=== PATIENT | male | born 1955 | race Caucasian/White ===

== ENCOUNTER → 2019-05-06 | Outpatient (CLI) | payer BC ==
--- NOTE | 2019-05-06 13:50 | PCVCIMAG ---
APPROVED REPORT Study performed: 05/06/2019 12:56:23 EXAM: Comprehensive 2D, Doppler, and color-flow Echocardiogram Patient Location: Echo lab Room #: 3Status: routine BSA: 2.33 HR: 80 bpmBP: 122/66 mmHg Rhythm: NSR Other Information Study Quality: Good Risk Factors: Cardiac Risk Factors: HTN, Hyperlipidemia, DM Indications Dyspnea Edema- weight gain 20 lb/ 1 mo, SOB 2D Dimensions IVSd: 7.77 (7-11mm)LVOT Diam: 21.96 (18-24mm) LVDd: 52.08 mm PWd: 7.81 (7-11mm)Ascending Ao: 32.95 (22-36mm) LVDs: 33.34 (25-40mm) Left Atrium: 32.60 (27-40mm) Aortic Root: 27.06 mm LV Single Plane 4CH: 56.42 % LV Single Plane 2CH: 63.45 % Biplane EF: 59.8 % Aortic Valve AoV Peak Nilton.: 1.07 m/s AO Peak Gr.: 4.61 mmHgLVOT Max P.00 mmHg LVOT Max V: 0.87 m/s [place] Vmax: 3.05 cm2 Mitral Valve E/A Ratio: 1.1 MV Decel. Time: 226.22 ms MV E Max Nilton.: 0.93 m/s MV A Nilton.: 0.83 m/s IVRT: 87.66 ms TDI E/Lateral E': 10.33E/Medial E': 11.63 Medial E' Nilton.: 0.08 m/s Lateral E' Nilton.: 0.09 m/s Pulmonary Valve PV Peak Nilton.: 0.68 m/sPV Peak Gr.: 1.87 mmHg Pulmonary Vein P Vein S: 0.86 m/sP Vein A: 0.39 m/s P Vein D: 0.52 m/sP Vein A Dur.: 106.1 msec P Vein S/D Ratio: 1.65 Tricuspid Valve TR Peak Nilton.: 1.24 m/s TR Peak Gr.: 6.14 mmHg TV Vmax: 0.63 m/sPA Pressure: 13.00 mmHg Left Ventricle The left ventricle is normal size. There is normal LV segmental wall motion. There is normal left ventricular wall thickness. Left ventricular systolic function is normal. The left ventricular ejection fraction is within the normal range. LVEF is 60%. The left ventricular diastolic function is normal. Right Ventricle The right ventricle is normal size. Right ventricular septal motion is paradoxical. Near collapse is seen. Atria The left atrium size is normal. Right atrial bowing and partial collapse is seen. The right atrium size is normal. Aortic Valve Aortic valve is trileaflet. The aortic valve is normal in structure. No aortic regurgitation is present. There is no aortic valvular stenosis. Mitral Valve The mitral valve is normal in structure. There is no mitral valve regurgitation noted. No evidence of mitral valve stenosis. Tricuspid Valve The tricuspid valve is normal in structure. Trace tricuspid regurgitation. Pulmonic Valve The pulmonary valve is normal in structure. There is no pulmonic valvular regurgitation. Great Vessels The aortic root is normal in size. IVC is normal in size and collapses >50% with inspiration. Pericardium Moderate circumferential pericardial effusion. mod-Large pleural effusion is seen.partial rt sided collapse <Conclusion> The left ventricle is normal size. LVEF is 60%. The left ventricular diastolic function is normal. The right ventricle is normal size. Right ventricular septal motion is paradoxical. Near collapse is seen. Right atrial bowing and partial collapse is seen. The right atrium size is normal. Aortic valve is trileaflet. The aortic valve is normal in structure. There is no mitral valve regurgitation noted. Trace tricuspid regurgitation. The aortic root is normal in size. Moderate circumferential pericardial effusion. mod-Large pleural effusion is seen.partial rt sided collapse
== END | disposition home or self-care (01) ==
LOC: PCVCIMAG 10:59
PROVIDERS: ATTEND Internal Medicine Cardiovascular Disease
DX: I31.3 Pericardial effusion (noninflammatory) (principal); J90 Pleural effusion, not elsewhere classified; R06.00 Dyspnea, unspecified; R60.0 Localized edema; R63.5 Abnormal weight gain
CPT/HCPCS: 93306

== ENCOUNTER → 2019-05-13 | Outpatient (CLI) | payer BC ==
--- NOTE | 2019-05-13 17:30 | PCVCIMAG ---
APPROVED REPORT Study performed: 05/13/2019 09:25:04 EXAM: Limited 2D, Doppler, and color-flow Echocardiogram Patient Location: Echo lab Room #: 2Status: routine BSA: 2.33 HR: 94 bpmBP: 160/98 mmHg Rhythm: NSR Other Information Study Quality: Good Indications Dyspnea Pericardial Effusion Pleural Effusion F/U POST THORACENTESIS Left Ventricle The left ventricle is normal size. There is normal LV segmental wall motion. There is normal left ventricular wall thickness. Left ventricular systolic function is normal. The left ventricular ejection fraction is within the normal range. LVEF is 55-60%. Transmitral Doppler flow pattern suggests impaired LV relaxation. Right Ventricle The right ventricle is normal size. Mild bowing of the RV without collapse Atria The left atrium size is normal. Right atrial bowing without collapse. Aortic Valve Aortic valve is trileaflet. No aortic regurgitation is present. There is no aortic valvular stenosis. Mitral Valve The mitral valve is normal in structure. There is no mitral valve regurgitation noted. No evidence of mitral valve stenosis. Tricuspid Valve The tricuspid valve is normal in structure. There is no tricuspid valve regurgitation noted. Pulmonic Valve The pulmonary valve is normal in structure. There is no pulmonic valvular regurgitation. Great Vessels The aortic root is normal in size. IVC is dilated and collapses >50% with inspiration. Pericardium Moderate circumferential pericardial effusion.min rt atrial collapse Large pleural effusion. Ascites is present. <Conclusion> The left ventricle is normal size. LVEF is 55-60%. Transmitral Doppler flow pattern suggests impaired LV relaxation. Mild bowing of the RV without collapse Right atrial bowing without collapse. There is no aortic valvular stenosis. There is no mitral valve regurgitation noted. There is no tricuspid valve regurgitation noted. The aortic root is normal in size. Moderate circumferential pericardial effusion. Moderate circumferential pericardial effusion.min rt atrial collapse Large pleural effusion. Ascites is present.
== END | disposition home or self-care (01) ==
LOC: PCVCIMAG 09:17
PROVIDERS: ATTEND Internal Medicine Cardiovascular Disease
DX: I31.3 Pericardial effusion (noninflammatory) (principal); J90 Pleural effusion, not elsewhere classified; I05.9 Rheumatic mitral valve disease, unspecified; G47.33 Obstructive sleep apnea (adult) (pediatric); E11.9 Type 2 diabetes mellitus without complications; I10 Essential (primary) hypertension; Z98.890 Other specified postprocedural states
CPT/HCPCS: 93308

== ENCOUNTER → 2019-07-22 | Outpatient (CLI) | payer BC ==
--- NOTE | 2019-07-22 15:13 | PCVCIMAG ---
APPROVED REPORT Study performed: 07/22/2019 13:59:11 EXAM: Comprehensive 2D, Doppler, and color-flow Echocardiogram Patient Location: Echo lab Room #: 3Status: routine BSA: 2.30 HR: 82 bpmBP: 102/62 mmHg Rhythm: NSR Other Information Study Quality: Good Indications Dyspnea Pericardial Effusion Pleural Effusion Hx: CLL 2D Dimensions IVSd: 8.02 (7-11mm)LVOT Diam: 26.54 (18-24mm) LVDd: 44.01 mm PWd: 9.20 (7-11mm)Ascending Ao: 25.39 (22-36mm) LVDs: 18.26 (25-40mm) Left Atrium: 31.50 (27-40mm) Aortic Root: 29.12 mm Aortic Valve AoV Peak Nilton.: 1.29 m/s AO Peak Gr.: 6.68 mmHg Mitral Valve E/A Ratio: 1.4 MV Decel. Time: 175.34 ms MV E Max Nilton.: 0.91 m/s MV A Nilton.: 0.66 m/s Left Ventricle The left ventricle is normal size. There is normal LV segmental wall motion. There is normal left ventricular wall thickness. Left ventricular systolic function is normal. The left ventricular ejection fraction is within the normal range. LVEF is 55-60%. The left ventricular diastolic function is normal. Right Ventricle The right ventricle is normal size. RV buckling without collapse is seen. Atria The left atrium size is normal. RA buckling without collapse is seen Aortic Valve The aortic valve is normal in structure. No aortic regurgitation is present. There is no aortic valvular stenosis. Mitral Valve The mitral valve is normal in structure. There is no mitral valve regurgitation noted. No evidence of mitral valve stenosis. Tricuspid Valve The tricuspid valve is normal in structure. There is no tricuspid valve regurgitation noted. Pulmonic Valve The pulmonary valve is normal in structure. There is no pulmonic valvular regurgitation. Great Vessels The aortic root is normal in size. IVC is normal in size and collapses >50% with inspiration. Pericardium Moderate circumferential pericardial effusion. Large pleural effusion. Ascites is present. <Conclusion> The left ventricle is normal size. LVEF is 55-60%. The left ventricular diastolic function is normal. The right ventricle is normal size. RV buckling without collapse is seen. The left atrium size is normal. RA buckling without collapse is seen The aortic valve is normal in structure. There is no mitral valve regurgitation noted. There is no tricuspid valve regurgitation noted. The aortic root is normal in size. Moderate circumferential pericardial effusion. Large pleural effusion. Ascites is present.
== END | disposition home or self-care (01) ==
LOC: PCVCIMAG 13:51
PROVIDERS: ATTEND Internal Medicine Cardiovascular Disease
DX: J90 Pleural effusion, not elsewhere classified (principal); R06.00 Dyspnea, unspecified; I31.3 Pericardial effusion (noninflammatory); R18.8 Other ascites
CPT/HCPCS: 93308

== ENCOUNTER → 2019-10-07 | Outpatient (CLI) | payer BC ==
--- NOTE | 2019-10-07 17:17 | PCVCIMAG ---
APPROVED REPORT Study performed: 10/07/2019 14:58:06 EXAM: Comprehensive 2D, Doppler, and color-flow Echocardiogram Patient Location: Echo lab Status: routine BSA: 2.12 HR: 69 bpmBP: 140/80 mmHg Rhythm: NSR Other Information Study Quality: Good Risk Factors: Cardiac Risk Factors: HTN, Hyperlipidemia, DM Indications Pleural Effusion CLL, Pericardial effusion, ASHLYN Left Ventricle normal ef 60%ef Pericardium Mild pericardial effusion. Mild plueral effusion. <Conclusion> 60%ef Mild pericardial effusion.improved from prior Mild plueral effusion.
== END | disposition home or self-care (01) ==
LOC: PCVCIMAG 14:56
PROVIDERS: ATTEND Internal Medicine Cardiovascular Disease
DX: J90 Pleural effusion, not elsewhere classified (principal); I10 Essential (primary) hypertension; E11.9 Type 2 diabetes mellitus without complications; E78.5 Hyperlipidemia, unspecified; Z90.49 Acquired absence of other specified parts of digestive tract
CPT/HCPCS: 93308